=== PATIENT | male | born 1955 | race Caucasian/White ===

== ENCOUNTER 2018-05-03 22:59 | Emergency (ER) | payer OTHER ==
[~2018-05-03] VITALS: Ht 165.1 cm; Wt 81.6 kg
[~2018-05-03 22:59] MED LIST: ALPRAZOLAM1 MG; ARICEPT10 MG PO; ASPIR 8181 MG PO; GABAPENTIN400 MG PO; PROTONIX40 M1 PO; QUETIAPINE FUMA25 MG PO; RESTORIL30 M1 PO; TRAMADOL HCL50 MG; ZESTRIL40 M1; ZOCOR20 MG PO
[2018-05-03] MEDS ORDERED: PRINIVIL20 MG (23:11)
[2018-05-03] MEDS ORDERED: PROSCAR5 MG (23:11)
[2018-05-04] MEDS ORDERED: ZOFRAN4 MG PO (04:30)
== END 2018-05-04 05:22 | disposition home or self-care (01) ==
LOC: ER 22:59
DX: R00.2 Palpitations (principal); R42 Dizziness and giddiness; K21.9 Gastro-esophageal reflux disease without esophagitis

== ENCOUNTER 2018-06-04 07:45 | Outpatient (CLI) | payer OTHER ==
[~2018-06-04 07:45] MED LIST changes: +PRINIVIL20 MG; +PROSCAR5 MG; +ZOFRAN4 MG PO
== END 2018-06-04 08:34 | disposition home or self-care (01) ==
LOC: NUCLEAR 07:45
DX: I65.22 Occlusion and stenosis of left carotid artery (principal)

== ENCOUNTER 2018-07-06 06:00 | Day surgery (SDC) | payer OTHER ==
[~2018-07-06] VITALS: Ht 165.1 cm; Wt 83.0 kg
[~2018-07-06 06:00] MED LIST changes: +BETIMOL5 M1 OTIC; +BUPRO PO; +MELATONIN2.5 MG PO; +MULTIPLE VITAM1 EACH PO; +UROXATRAL10 MG PO; +VALACYCLOVIR1000 MG PO; +[UNRECOGNIZED DRUG - OTHER] PO
[2018-07-06] MEDS ORDERED: RANITIDINE HCL150 MG PO (10:13)
== END 2018-07-07 08:00 | disposition home or self-care (01) ==
LOC: O/R 06:00 → SURH 06:00 → CIR.AMB 06:00 → SURH 08:15 → EDSTATUS 08:15 → SURH 11:30 → O/R 15:36 → CIR.AMB 07-07 08:00 → SURH 07-07 12:21
DX: N40.1 Benign prostatic hyperplasia with lower urinary tract symptoms (principal); R33.8 Other retention of urine

== ENCOUNTER 2018-10-31 19:04 | Emergency (ER) | payer OTHER ==
[~2018-10-31] VITALS: Ht 165.1 cm; Wt 83.9 kg
[~2018-10-31 19:04] MED LIST changes: +RANITIDINE HCL150 MG PO
== END 2018-10-31 21:51 | disposition home or self-care (01) ==
LOC: ER 19:04
DX: I16.0 Hypertensive urgency (principal); I10 Essential (primary) hypertension

== ENCOUNTER 2019-12-09 12:21 | Day surgery (SDC) | payer OTHER ==
[~2019-12-09 12:21] MED LIST changes: +PROBIOTIC1 EAC2 PO; +TIROSINT50 MCG PO; +ZINC50 M1 PO; +[UNRECOGNIZED DRUG - OTHER]
[2019-12-10] MEDS ORDERED: COLACE100 MG PO ×2 (09:26)
[2019-12-10] MEDS ORDERED: PERCOCET 5-3251 EACH PO ×2 (09:26)
== END 2019-12-09 16:45 | disposition home or self-care (01) ==
LOC: AMB-ENDOS 12:21
PROVIDERS: ATTEND Surgery
DX: K62.89 Other specified diseases of anus and rectum (principal); Z20.828 Contact with and (suspected) exposure to other viral communicable diseases

== ENCOUNTER 2019-12-10 06:00 | Day surgery (SDC) | payer OTHER ==
[2019-12-10] MEDS ORDERED: PERCOCET 5-3251 EACH PO ×2 (09:26)
[2019-12-10] MEDS ORDERED: COLACE100 MG PO ×2 (09:26)
== END 2019-12-10 13:15 | disposition home or self-care (01) ==
LOC: CIR.AMB 06:00
PROVIDERS: ATTEND Surgery
DX: K62.0 Anal polyp (principal); A63.0 Anogenital (venereal) warts; K62.89 Other specified diseases of anus and rectum; Z20.828 Contact with and (suspected) exposure to other viral communicable diseases